=== PATIENT | male | born 1985 | race Caucasian/White ===

== ENCOUNTER 2016-08-27 21:49 | Observation (INO) | payer SELFPAY ==
[~2016-08-27] VITALS: Ht 188 cm; Wt 113.0 kg
[2016-08-27 21:51] VITALS: BP 178/97; PULSE 97; RESP 14; TEMP 97.7; O2SAT 100
[2016-08-27 23:17] LABS: AUTOMATED NEUTROPHIL # 5.7 TH/MM3 (1.8-7.7); BASOPHIL # 0.1 TH/MM3 (0-0.2); BASOPHIL % 0.8 % (0.0-2.0); EOSINOPHIL # 0.1 TH/MM3 (0-0.4); EOSINOPHIL % 1.1 % (0.0-4.0); HEMATOCRIT 43.5 % (39.0-51.0); HEMO FLAGS DIFF FINAL; LYMPHOCYTE # 2.2 TH/MM3 (1.0-4.8); MEAN CELL VOLUME 89.8 FL (80.0-100.0); MEAN CORPUSCULAR HEMOGLOBIN 32.2 PG (27.0-34.0); MEAN CORPUSCULAR HGB CONC 35.8 % (32.0-36.0); MONO % 9.2 % (0.0-8.0); NEUT % 63.9 % (16.0-70.0); PLATELET COUNT 248 TH/MM3 (150-450); RED BLOOD COUNT 4.85 MIL/MM3 (4.50-5.90); RED CELL DISTRIBUTION WIDTH 14.5 % (11.6-17.2); WHITE BLOOD COUNT 8.9 TH/MM3 (4.0-11.0)
[2016-08-27 23:38] LABS: ALT (GPT) 45 U/L (12-78); ANION GAP 9 MEQ/L (5-15); AST (GOT) 26 U/L (15-37); BICARBONATE 26.4 MEQ/L (21.0-32.0); BLOOD UREA NITROGEN 11 MG/DL (7-18); CHLORIDE 104 MEQ/L (98-107); GLOMERULAR FILTRATION RATE 88 ML/MIN (>89); POTASSIUM 3.6 MEQ/L (3.5-5.1); SODIUM (NA) 139 MEQ/L (136-145)
[2016-08-27 23:41] LABS: ALKALINE PHOSPHATASE 100 U/L (45-117); TOTAL BILIRUBIN ADULT 0.4 MG/DL (0.2-1.0)
--- NOTE | 2016-08-27 23:50 | PD ---
HPI Chief Complaint: Psychiatric Symptoms Time Seen by Provider: 23:47 Travel History International Travel<30 days: No Contact w/Intl Traveler<30days: No Traveled to known affect area: No History of Present Illness HPI 31-year-old male with history of schizoaffective disorder, here for evaluation of suicidal ideation, auditory hallucinations, and alcohol withdrawal. The patient is from [place], but recently moved here. He drinks about a half a gallon of alcohol per day. His last drink was yesterday. He states he is trying to get sober. He admits to using a small amount of methamphetamine about a week ago by snorting it. He denies any other illicit drug use. He states that he has been hearing voices and has had suicidal thoughts, but is afraid of hurting himself. He is tremulous. No other physical complaints. [facility] Social History Alcohol Use: Yes Tobacco Use: Yes Substance Use: Yes Allergies-Medications (Allergen,Severity, Reaction): Coded Allergies: Penicillin (Verified Allergy, Mild, RASH, 08/28/16) Reported Meds & Prescriptions Reported Meds & Active Scripts Active Vitamin B-1 (Thiamine HCl) 100 Mg Tab 100 Mg PO DAILY Reported Quetiapine Fumarate ER (Quetiapine Fumarate) 150 Mg Tab 300 Mg PO TID Divalproex ER (Divalproex Sodium) 500 Mg Tab 500 Mg PO BID Omeprazole 20 Mg Tab 20 Mg PO BID Fluoxetine (Fluoxetine HCl) 20 Mg Tab 20 Mg PO DAILY Effexor (Venlafaxine HCl) 75 Mg Tab 75 Mg PO DAILY Haloperidol 5 Mg Tab 5 Mg PO BID Review of Systems Except as stated in HPI: all other systems reviewed are Neg Physical Exam Narrative GENERAL: Well-developed, well-nourished, awake, alert, tremulous, no acute distress. SKIN: Warm and dry. No rash. HEAD: Atraumatic. Normocephalic. EYES: Pupils equal and round. No scleral icterus. No injection or drainage. ENT: No nasal bleeding or discharge. Mucous membranes pink and moist. Tongue fasciculations. NECK: Trachea midline. No JVD. No nuchal rigidity. CARDIOVASCULAR: Regular rate and rhythm. RESPIRATORY: No accessory muscle use. Clear to auscultation. Breath sounds equal bilaterally. GASTROINTESTINAL: Abdomen soft, non-tender, nondistended. MUSCULOSKELETAL: No obvious deformities. No clubbing. No cyanosis. No edema. NEUROLOGICAL: Awake and alert. No obvious cranial nerve deficits. Motor grossly within normal limits. Normal speech. PSYCHIATRIC: Appropriate mood and affect; insight and judgment normal. Data Data Last Documented VS Vital Signs Date Time Temp Pulse Resp B/P Pulse Ox O2 Delivery O2 Flow Rate FiO2 08/27/16 21:51 97.7 97 14 178/97 100 Room Air Orders Complete Blood Count With Diff (08/27/16 22:51) Comprehensive Metabolic Panel (08/27/16 22:51) Psych Screen (08/27/16 22:51) Drug Screen, Random Urine (08/27/16 22:51) Alcohol (Ethanol) (08/27/16 22:51) Lorazepam Inj (Ativan Inj) (08/28/16 00:00) Place In Observation (08/27/16 ) Vital Signs (Adult) Q4H (08/27/16 23:58) Activity Oob With Assistance (08/27/16 23:58) Diet Heart Healthy (08/28/16 Breakfast) Sodium Chlor 0.9% 1000 Ml Inj (Ns 1000 M (08/27/16 23:58) Sodium Chloride 0.9% Flush (Ns Flush) (08/28/16 00:00) Sodium Chloride 0.9% Flush (Ns Flush) (08/28/16 09:00) Basic Metabolic Panel (Bmp) (08/28/16 06:00) Complete Blood Count With Diff (08/28/16 06:00) Case Management Consult (08/27/16 23:58) Naloxone Inj (Narcan Inj) (08/28/16 00:00) Lorazepam Inj (Ativan Inj) (08/28/16 00:00) Chlordiazepoxide (Librium) (08/28/16 09:00) Consult Psych Counselor Etoh (08/27/16 ) ^ Etoh Withdrawal Precautions (08/27/16 23:59) Thiamine (Vit B1) (Vitamin B1) (08/28/16 00:15) Thiamine (Vit B1) (Vitamin B1) (08/28/16 09:00) Ondansetron Inj (Zofran Inj) (08/28/16 00:15) Admit Order (Ed Use Only) (08/28/16 00:04) Consult Psychiatry (08/28/16 ) ^ Sitter (08/28/16 00:04) Chlordiazepoxide (Librium) (08/28/16 00:30) Lipase (08/27/16 23:02) Labs Laboratory Tests Test 08/27/16 23:02 White Blood Count 8.9 TH/MM3 Red Blood Count 4.85 MIL/MM3 Hemoglobin 15.6 GM/DL Hematocrit 43.5 % Mean Corpuscular Volume 89.8 FL Mean Corpuscular Hemoglobin 32.2 PG Mean Corpuscular Hemoglobin 35.8 % Concent Red Cell Distribution Width 14.5 % Platelet Count 248 TH/MM3 Mean Platelet Volume 8.9 FL Neutrophils (%) (Auto) 63.9 % Lymphocytes (%) (Auto) 25.0 % Monocytes (%) (Auto) 9.2 % Eosinophils (%) (Auto) 1.1 % Basophils (%) (Auto) 0.8 % Neutrophils # (Auto) 5.7 TH/MM3 Lymphocytes # (Auto) 2.2 TH/MM3 Monocytes # (Auto) 0.8 TH/MM3 Eosinophils # (Auto) 0.1 TH/MM3 Basophils # (Auto) 0.1 TH/MM3 CBC Comment DIFF FINAL Differential Comment Sodium Level 139 MEQ/L Potassium Level 3.6 MEQ/L Chloride Level 104 MEQ/L Carbon Dioxide Level 26.4 MEQ/L Anion Gap 9 MEQ/L Blood Urea Nitrogen 11 MG/DL Creatinine 0.99 MG/DL Estimat Glomerular Filtration 88 ML/MIN Rate Random Glucose 89 MG/DL Calcium Level 9.4 MG/DL Total Bilirubin 0.4 MG/DL Aspartate Amino Transf 26 U/L (AST/SGOT) Alanine Aminotransferase 45 U/L (ALT/SGPT) Alkaline Phosphatase 100 U/L Total Protein 8.2 GM/DL Albumin 4.1 GM/DL Lipase 274 U/L Ethyl Alcohol Level LESS THAN 3 MG/DL [facility] Medical Decision Making Medical Screen Exam Complete: Yes Emergency Medical Condition: Yes Differential Diagnosis Alcohol withdrawal, acute psychosis, suicidal ideation, paranoid thoughts Narrative Course Vital signs show heart rate 97, blood pressure 178/97, pulse ox 100% on room air , oral temp of 97.7F. CBC is unremarkable. CMP is unremarkable. Alcohol level is negative. The patient is awake and alert. He is tremulous and has tongue fasciculations. He is also tachycardic and hypertensive. His last alcoholic drink was yesterday, and he usually drinks about a half a gallon of alcohol daily. He is displaying signs and symptoms of alcohol withdrawal. He is also having suicidal thoughts and auditory hallucinations. He will be admitted for further treatment and evaluation of alcohol which all, as well as for psychiatric consultation. Case discussed with hospitalist Dr. Juan who will admit the patient to her service. Diagnosis Primary Impression: Alcohol withdrawal Qualified Code: F10.239 - Alcohol withdrawal, with unspecified complication Additional Impressions: Suicidal ideation Auditory hallucinations Admitting Information Admitting Physician Requests: Admit Scripts Thiamine (Vitamin B-1)100 Mg [id number] Mg PO DAILY #30 TAB Prov:Brayan Camargo MD 08/28/16 Fahad Salter MD Aug 27, 2016 23:50
[2016-08-27] MEDS ORDERED: SODIUM CHLOR 0.9% 1000 ML INJ 1,000 ML IV SCH (23:58)
[2016-08-28] MEDS ORDERED: LORazepam 2 MG/ML VIAL IV PUSH ONE
[2016-08-28] MEDS ORDERED: SODIUM CHLORIDE 0.9% FLUSH 5 ML FLUSH FLUSH PRN
[2016-08-28] MEDS ORDERED: NALOXONE HCL 0.4 MG/ML AMP IV PRN
[2016-08-28] MEDS ORDERED: OMEP20TA PO (00:08)
[2016-08-28] MEDS ORDERED: VENL75TA PO (00:08)
[2016-08-28] MEDS ORDERED: HALO5TAB PO (00:08)
[2016-08-28] MEDS ORDERED: QUET-87 PO (00:08)
[2016-08-28] MEDS ORDERED: FLUO1TAB3 PO (00:08)
[2016-08-28] MEDS ORDERED: DIVA500T3 PO (00:08)
[2016-08-28] MEDS ORDERED: ONDANSETRON HCL 4 MG/2 ML VIAL IV PUSH ONE (00:15)
[2016-08-28] MEDS ORDERED: THIAMINE HCL 100 MG TAB PO ONE (00:15)
--- NOTE | 2016-08-28 00:23 | HHI.HP ---
[facility] Service [facility] Primary Care Physician Admission Diagnosis alcohol withdrawal, suicidal ideation, auditory hallucinations Diagnoses: Chief Complaint: Alcohol withdrawal, suicidal thoughts Travel History International Travel<30 Days: No Contact w/Intl Traveler <30 Da: No Traveled to Known Affected Are: No History of Present Illness 31-year-old male with a history of schizoaffective disorder and EtOH abuse presented to the ED with suicidal thoughts, auditory hallucinations, and withdrawal symptoms. Patient states tremors, vomiting, haulcinations no diarrhea, no blood in his stools, abdominal epigastric pain Moved from [place] one month ago voices comes and go, and it has been worse over the last week. He ran out of his med two weeks ago. He has been having suicidal thoughts and his plan was to get hit by a car. Does not see a psychiatrist in this area. Review of Systems Constitutional: DENIES: Fever, Chills Respiratory: DENIES: Cough, Sputum production, Shortness of breath Cardiovascular: DENIES: Chest pain, Palpitations, Lower Extremity Edema Gastrointestinal: COMPLAINS OF: Abdominal pain, Nausea, Vomiting, DENIES: Constipation, Diarrhea Genitourinary: DENIES: Hematuria, Dysuria Musculoskeletal: DENIES: Back pain, Neck pain Integumentary: DENIES: Rash Hematologic/lymphatic: DENIES: Lymphadenopathy Immunologic/allergic: DENIES: Urticaria Neurologic: DENIES: Headache Psychiatric: COMPLAINS OF: Hallucinations, Suicidal Ideation Past Family Social History Past Medical History Schizoaffective disorder EtOH abuse Past Surgical History tib/fib repair Reported Medications Reported Meds & Active Scripts Active Reported Quetiapine Fumarate ER (Quetiapine Fumarate) 150 Mg Tab 300 Mg PO TID Divalproex ER (Divalproex Sodium) 500 Mg Tab 500 Mg PO BID Omeprazole 20 Mg Tab 20 Mg PO BID Fluoxetine (Fluoxetine HCl) 20 Mg Tab 20 Mg PO DAILY Effexor (Venlafaxine HCl) 75 Mg Tab 75 Mg PO DAILY Haloperidol 5 Mg Tab 5 Mg PO BID Allergies: Coded Allergies: Penicillin (Verified Allergy, Mild, RASH, 08/28/16) Active Ordered Medications Current Medications Medications (Trade) Dose Ordered Sig/Marly Route Start Time Stop Time Status Last Admin (NS 1000 ml Inj) 1,000 ml @ 100 mls/hr Q10H IV 08/27/16 23:58 08/28/16 00:16 (NS Flush) 2 ml UNSCH PRN FLUSH 08/28/16 00:00 (NS Flush) 2 ml BID FLUSH 08/28/16 09:00 (Narcan Inj) 0.4 mg UNSCH PRN IV 08/28/16 00:00 (Ativan Inj) 1 mg Q2H PRN IV PUSH 08/28/16 00:00 (Librium) 25 mg TID PO 08/28/16 09:00 (Librium) 25 mg ONCE ONCE PO 08/28/16 00:30 08/28/16 00:31 (Vitamin B1) 100 mg DAILY PO 08/28/16 09:00 Family History Family history significant for heart disease. Aunt has schizoaffective disorder Social History Tobacco use: 1 PPD Alcohol use: Half a gallon a day of whiskey Illicit drug use: snorts methamphetamine, last use was one week ago Physical Exam Vital Signs Vital Signs Date Time Temp Pulse Resp B/P Pulse Ox O2 Delivery O2 Flow Rate FiO2 08/27/16 21:51 97.7 97 14 178/97 100 Room Air Physical Exam GENERAL: This is a well-nourished, well-developed patient, who is having tremors. SKIN: No rashes, ecchymoses or lesions. Cool and dry. HEAD: Atraumatic. Normocephalic. . EYES: Pupils equal round and reactive. Extraocular motions intact. No scleral icterus. No injection or drainage. ENT: Nose without bleeding, purulent drainage or septal hematoma. Airway patent. NECK: Trachea midline. No JVD or lymphadenopathy. Supple, nontender, no meningeal signs. CARDIOVASCULAR: Regular rate and rhythm without murmurs, gallops, or rubs. RESPIRATORY: Clear to auscultation. Breath sounds equal bilaterally. No wheezes , rales, or rhonchi. GASTROINTESTINAL: Abdomen soft, non-tender, nondistended. No hepato-splenomegaly , or palpable masses. No guarding. MUSCULOSKELETAL: Extremities without clubbing, cyanosis, or edema. No joint tenderness, effusion, or edema noted. No calf tenderness. NEUROLOGICAL: Awake and alert. Motor and sensory grossly within normal limits. Normal speech. Laboratory Laboratory Tests Test 08/27/16 23:02 White Blood Count 8.9 Red Blood Count 4.85 Hemoglobin 15.6 Hematocrit 43.5 Mean Corpuscular Volume 89.8 Mean Corpuscular Hemoglobin 32.2 Mean Corpuscular Hemoglobin 35.8 Concent Red Cell Distribution Width 14.5 Platelet Count 248 Mean Platelet Volume 8.9 Neutrophils (%) (Auto) 63.9 Lymphocytes (%) (Auto) 25.0 Monocytes (%) (Auto) 9.2 Eosinophils (%) (Auto) 1.1 Basophils (%) (Auto) 0.8 Neutrophils # (Auto) 5.7 Lymphocytes # (Auto) 2.2 Monocytes # (Auto) 0.8 Eosinophils # (Auto) 0.1 Basophils # (Auto) 0.1 CBC Comment DIFF FINAL Differential Comment Sodium Level 139 Potassium Level 3.6 Chloride Level 104 Carbon Dioxide Level 26.4 Anion Gap 9 Blood Urea Nitrogen 11 Creatinine 0.99 Estimat Glomerular Filtration 88 Rate Random Glucose 89 Calcium Level 9.4 Total Bilirubin 0.4 Aspartate Amino Transf 26 (AST/SGOT) Alanine Aminotransferase 45 (ALT/SGPT) Alkaline Phosphatase 100 Total Protein 8.2 Albumin 4.1 Ethyl Alcohol Level LESS THAN 3 Result Diagram: 08/27/16 2302 08/27/16 230 Assessment and Plan Problem List: (1) Suicidal ideation ICD Code: R45.851 Status: Acute (2) Alcohol withdrawal ICD Code: F10.239 Status: Acute (3) Auditory hallucinations ICD Code: R44.0 Status: Acute Assessment and Plan 31-year-old male with a history of schizoaffective disorder and EtOH abuse presented to the ED with suicidal thoughts, auditory hallucinations, and withdrawal symptoms Alcohol withdrawal -Thiamine and Librium scheduled, Ativan ordered -Withdrawal precautions -IVF hydration - Monitor telemetry Suicidal ideation/auditory hallucinations -Sitter at bedside -Consult psych DVT prophylaxis: SCDs Written by Nicole SLOAN, acting as scribe for Dr. Juan on 08/28/16 at . The documentation accurately reflects the work performed [id number] and decisions made by me and the physician Dr Juan on 08/28/16. Discussed Condition With Patient, ED physician and RN Physician Certification Order for Inpatient Services The services are ordered in accordance with Medicare regulations or non- Medicare payer requirements, as applicable. In the case of services not specified as inpatient-only, they are appropriately provided as inpatient services in accordance with the 2-midnight benchmark. days is the estimated time the patient will need to remain in the hospital, assuming treatment plan goals are met and no additional complications. Problem Qualifiers (1) Alcohol withdrawal: Qualified Code: F10.239 - Alcohol withdrawal, with unspecified complication Nicole Alanis Aug 28, 2016 00:23
[2016-08-28 00:30] VITALS: BP 118/67; PULSE 71; RESP 18; O2SAT 99
[2016-08-28] MEDS ORDERED: chlordiazePOXIDE 25 MG CAP PO ONE (00:30)
[2016-08-28 03:00] VITALS: BP 136/65; PULSE 66; RESP 18; O2SAT 98
[2016-08-28 04:23] VITALS: BP 118/75; PULSE 63; RESP 20; TEMP 98.2; O2SAT 97
--- NOTE | 2016-08-28 04:46 | HHI.HP ---
[facility] Service [facility] Primary Care Physician No Primary Care Physician Admission Diagnosis alcohol withdrawal, suicidal ideation, auditory hallucinations Diagnoses: (1) Suicidal ideation (2) Alcohol withdrawal (3) Auditory hallucinations Chief Complaint: Alcohol withdrawal, suicide thoughts Travel History International Travel<30 Days: No Contact w/Intl Traveler <30 Da: No Traveled to Known Affected Are: No History of Present Illness 31-year-old male with a history of schizoaffective disorder and EtOH abuse presented to the ED with suicidal thoughts, auditory hallucinations, and withdrawal symptoms. Patient states he recently [place] one month ago and yesterday he moved into a sober living house and stopped drinking. He stated today he started having tremors, nausea and vomiting with associated epigastric pain. He states one week ago he started having worsening hallucinations more so than normal, and 2 weeks ago he ran out of all his medications. He has been having suicidal thoughts and his plan was to walk into the street and get hit by a car. He currently does not see a psychiatrist in this area. He denies any chest pain, shortness of breath, diarrhea, fever or chills. Patient does admit to drinking half a gallon of whiskey a day since the age of 14, in one week ago he snorted methamphetamine in order to continue to drink. Upon assessment patient was noticed to have slight tremors but not currently an active withdrawal. Sitter is at the bedside Review of Systems Constitutional: DENIES: Fever, Chills Respiratory: DENIES: Cough, Sputum production, Shortness of breath Cardiovascular: DENIES: Chest pain, Lower Extremity Edema Gastrointestinal: COMPLAINS OF: Abdominal pain, Nausea, Vomiting, DENIES: Constipation, Diarrhea Musculoskeletal: DENIES: Back pain, Neck pain Integumentary: DENIES: Rash Hematologic/lymphatic: DENIES: Lymphadenopathy Immunologic/allergic: DENIES: Urticaria Neurologic: DENIES: Headache Psychiatric: COMPLAINS OF: Hallucinations, Suicidal Ideation Past Family Social History Past Medical History Schizoaffective disorder EtOH abuse Past Surgical History tib/fib repair Reported Medications Reported Meds & Active Scripts Active Reported Quetiapine Fumarate ER (Quetiapine Fumarate) 150 Mg Tab 300 Mg PO TID Divalproex ER (Divalproex Sodium) 500 Mg Tab 500 Mg PO BID Omeprazole 20 Mg Tab 20 Mg PO BID Fluoxetine (Fluoxetine HCl) 20 Mg Tab 20 Mg PO DAILY Effexor (Venlafaxine HCl) 75 Mg Tab 75 Mg PO DAILY Haloperidol 5 Mg Tab 5 Mg PO BID Allergies: Coded Allergies: Penicillin (Verified Allergy, Mild, RASH, 08/28/16) Active Ordered Medications Current Medications Medications (Trade) Dose Ordered Sig/Marly Route Start Time Stop Time Status Last Admin (NS 1000 ml Inj) 1,000 ml @ 100 mls/hr Q10H IV 08/27/16 23:58 08/28/16 00:16 (NS Flush) 2 ml UNSCH PRN FLUSH 08/28/16 00:00 (NS Flush) 2 ml BID FLUSH 08/28/16 09:00 (Narcan Inj) 0.4 mg UNSCH PRN IV 08/28/16 00:00 (Ativan Inj) 1 mg Q2H PRN IV PUSH 08/28/16 00:00 (Librium) 25 mg TID PO 08/28/16 09:00 (Vitamin B1) 100 mg DAILY PO 08/28/16 09:00 Family History Family history significant for heart disease. Aunt has schizoaffective disorder Social History Tobacco use: 1 PPD Alcohol use: Half a gallon a day of whiskey Illicit drug use: snorts methamphetamine, last use was one week ago Physical Exam Vital Signs Vital Signs Date Time Temp Pulse Resp B/P Pulse Ox O2 Delivery O2 Flow Rate FiO2 08/28/16 04:23 98.2 63 20 118/75 97 08/28/16 03:00 66 18 136/65 98 Room Air 08/28/16 00:30 71 18 118/67 99 Room Air 08/27/16 21:51 97.7 97 14 178/97 100 Room Air Physical Exam GENERAL: This is a well-nourished, well-developed patient, who is having slight tremors. SKIN: No rashes, ecchymoses or lesions. Cool and dry. HEAD: Atraumatic. Normocephalic. . EYES: Pupils equal round and reactive. Extraocular motions intact. No scleral icterus. No injection or drainage. ENT: Nose without bleeding, purulent drainage or septal hematoma. Airway patent. NECK: Trachea midline. No JVD or lymphadenopathy. CARDIOVASCULAR: Regular rate and rhythm without murmurs, gallops, or rubs. RESPIRATORY: Clear to auscultation. Breath sounds equal bilaterally. No wheezes , rales, or rhonchi. GASTROINTESTINAL: Abdomen soft, mid epigastric tender, nondistended. No guarding. MUSCULOSKELETAL: Extremities without clubbing, cyanosis, or edema. No joint tenderness, effusion, or edema noted. No calf tenderness. NEUROLOGICAL: Awake and alert. Motor and sensory grossly within normal limits. Normal speech. Laboratory Laboratory Tests Test 08/27/16 23:02 White Blood Count 8.9 Red Blood Count 4.85 Hemoglobin 15.6 Hematocrit 43.5 Mean Corpuscular Volume 89.8 Mean Corpuscular Hemoglobin 32.2 Mean Corpuscular Hemoglobin 35.8 Concent Red Cell Distribution Width 14.5 Platelet Count 248 Mean Platelet Volume 8.9 Neutrophils (%) (Auto) 63.9 Lymphocytes (%) (Auto) 25.0 Monocytes (%) (Auto) 9.2 Eosinophils (%) (Auto) 1.1 Basophils (%) (Auto) 0.8 Neutrophils # (Auto) 5.7 Lymphocytes # (Auto) 2.2 Monocytes # (Auto) 0.8 Eosinophils # (Auto) 0.1 Basophils # (Auto) 0.1 CBC Comment DIFF FINAL Differential Comment Sodium Level 139 Potassium Level 3.6 Chloride Level 104 Carbon Dioxide Level 26.4 Anion Gap 9 Blood Urea Nitrogen 11 Creatinine 0.99 Estimat Glomerular Filtration 88 Rate Random Glucose 89 Calcium Level 9.4 Total Bilirubin 0.4 Aspartate Amino Transf 26 (AST/SGOT) Alanine Aminotransferase 45 (ALT/SGPT) Alkaline Phosphatase 100 Total Protein 8.2 Albumin 4.1 Ethyl Alcohol Level LESS THAN 3 Result Diagram: 08/27/16 2302 08/27/16 230 Assessment and Plan Problem List: (1) Suicidal ideation ICD Code: R45.851 Status: Acute (2) Alcohol withdrawal ICD Code: F10.239 Status: Acute (3) Auditory hallucinations ICD Code: R44.0 Status: Acute Assessment and Plan 31-year-old male with a history of schizoaffective disorder and EtOH abuse presented to the ED with suicidal thoughts, auditory hallucinations, and withdrawal symptoms Alcohol withdrawal, upon admission patient found to be very tremulous, patient drinks half a gallon was whiskey daily -Thiamine and Librium scheduled, Ativan prn ordered -Withdrawal precautions -IVF hydration - Monitor telemetry Suicidal ideation/auditory hallucinations -Sitter at bedside -Consult psych Abdominal pain, likely related to vomiting -Lipase level pending -We'll continue to monitor DVT prophylaxis: SCDs Written by Nicole SLOAN, acting as scribe for Dr. Juan on 08/28/16 at 0336. All or portions of this note were transcribed by scribe [Nicole Alanis]. I, Dr. Elaine Juan personally performed the history, physical exam, and medical decision making; and confirmed the accuracy of the information in the transcribed note. Authenticated by Dr. Elaine Juan on 08/28/16 at 0336. Discussed Condition With Patient, ED physician and RN Problem Qualifiers (1) Alcohol withdrawal: Qualified Code: F10.239 - Alcohol withdrawal, with unspecified complication Nicole Alanis Aug 28, 2016 04:46 Elaine Juan MD Aug 28, 2016 07:05
[2016-08-28 05:15] LABS: AUTOMATED NEUTROPHIL # 4.3 TH/MM3 (1.8-7.7); BASOPHIL % 0.5 % (0.0-2.0); EOSINOPHIL # 0.1 TH/MM3 (0-0.4); EOSINOPHIL % 1.5 % (0.0-4.0); HEMATOCRIT 39.7 % (39.0-51.0); HEMO FLAGS DIFF FINAL; LYMPH % 31.9 % (9.0-44.0); LYMPHOCYTE # 2.5 TH/MM3 (1.0-4.8); MEAN CELL VOLUME 90.2 FL (80.0-100.0); MEAN CORPUSCULAR HEMOGLOBIN 31.4 PG (27.0-34.0); MEAN CORPUSCULAR HGB CONC 34.9 % (32.0-36.0); NEUT % 56.1 % (16.0-70.0); PLATELET COUNT 221 TH/MM3 (150-450); RED CELL DISTRIBUTION WIDTH 14.3 % (11.6-17.2); WHITE BLOOD COUNT 7.7 TH/MM3 (4.0-11.0)
[2016-08-28 05:36] LABS: BICARBONATE 22.7 MEQ/L (21.0-32.0); POTASSIUM 3.3 MEQ/L (3.5-5.1)
[2016-08-28] MEDS ORDERED: LORazepam 2 MG/ML VIAL IV PUSH PRN ×5 (07:45)
[2016-08-28] MEDS ORDERED: LORazepam 2 MG TAB PO PRN (07:45)
[2016-08-28] MEDS ORDERED: MAGNESIUM HYDROXIDE SUSP 30 ML CUP PO PRN (07:45)
[2016-08-28] MEDS ORDERED: FLUMAZENIL 0.5 MG/5 ML VIAL IV PUSH PRN (07:45)
[2016-08-28] MEDS ORDERED: DOCUSATE SODIUM 50 MG/SENNA 8.6 MG TAB PO PRN (07:45)
[2016-08-28] MEDS ORDERED: HALOPERIDOL LACTATE 5 MG/ML AMP IM PRN (07:45)
[2016-08-28] MEDS ORDERED: LORazepam 1 MG TAB PO PRN (07:45)
[2016-08-28] MEDS ORDERED: ONDANSETRON HCL 4 MG/2 ML VIAL IV PRN (07:45)
[2016-08-28] MEDS ORDERED: ACETAMINOPHEN 325 MG TAB PO PRN (07:45)
[2016-08-28] MEDS ORDERED: ALUMINUM/MAGNESIUM/SIMETH 30 ML CUP PO PRN (07:45)
[2016-08-28 07:55] VITALS: BP 105/53; PULSE 56; RESP 17; TEMP 96.4; O2SAT 97
[2016-08-28] MEDS ORDERED: POTASSIUM CHLORIDE 10 MEQ CONTROLLED RELEASE TAB PO ONE (08:30)
--- NOTE | 2016-08-28 08:47 | HHI.PR ---
Subjective Remarks Follow up for hallucinations, suicidal ideations, and alcohol withdrawal. The patient states he feels pretty "crappy" this morning. He feels shaky, nauseated , "bad anxiety". The patient reports he's also ran out of his psychiatric medications 5 days ago. The patient states he joined a sober living home yesterday however they noticed him to be in withdrawal and sent him to the hospital. His last drink was yesterday. He also reports continuing to hear voices, denies auditory hallucinations. Objective Vitals Vital Signs Date Time Temp Pulse Resp B/P Pulse Ox O2 Delivery O2 Flow Rate FiO2 08/28/16 07:55 96.4 56 17 105/53 97 08/28/16 04:23 98.2 63 20 118/75 97 08/28/16 03:00 66 18 136/65 98 Room Air 08/28/16 00:30 71 18 118/67 99 Room Air 08/27/16 21:51 97.7 97 14 178/97 100 Room Air Result Diagram: 08/28/16 0309 08/28/16 0309 Objective Remarks GENERAL: Well-developed, well-nourished middle aged male patient in [facility]. Minimally tremulous. SKIN: Warm and dry. HEENT: Atraumatic. Normocephalic. Pupils equal and round. No scleral icterus. No injection or drainage. Mucous membranes pink and moist. NECK: Trachea midline. CARDIOVASCULAR: Regular rate and rhythm. No murmur. RESPIRATORY: No accessory muscle use. Clear to auscultation. Breath sounds equal bilaterally. GASTROINTESTINAL: Abdomen soft, non-tender, nondistended. Hepatic and splenic margins not palpable. MUSCULOSKELETAL: Extremities without clubbing, cyanosis, or edema. No obvious deformities. NEUROLOGICAL: Awake and alert, oriented x4. No obvious cranial nerve deficits. Motor grossly within normal limits. Moves all extremities spontaneously. Normal speech. PSYCHIATRIC: Depressed mood; insight and judgment normal. +auditory hallucinations. Medications and IVs Current Medications Medications (Trade) Dose Ordered Sig/Marly Route Start Time Stop Time Status Last Admin (NS Flush) 2 ml UNSCH PRN FLUSH 08/28/16 00:00 (NS Flush) 2 ml BID FLUSH 08/28/16 09:00 (Narcan Inj) 0.4 mg UNSCH PRN IV 08/28/16 00:00 Thiamine HCl 100 mg 100 mg DAILY PO 08/28/16 09:00 08/28/16 09:13 (NS + KCl 20 Meq Inj) 1,000 ml @ 100 mls/hr Q10H IV 08/28/16 09:00 08/28/16 09:11 (Folate) 1 mg DAILY PO 08/28/16 09:00 09/02/16 08:59 08/28/16 09:14 (Theragran M Tab) 1 tab DAILY PO 08/28/16 09:00 09/02/16 08:59 08/28/16 09:13 (Romazicon Inj) 0.2 mg Q1M PRN IV PUSH 08/28/16 07:45 (Ativan) 1 mg Q4H PRN PO 08/28/16 07:45 (Ativan Inj) 1 mg Q4H PRN IV PUSH 08/28/16 07:45 (Ativan) 2 mg Q2H PRN PO 08/28/16 07:45 (Ativan Inj) 2 mg Q2H PRN IV PUSH 08/28/16 07:45 08/28/16 09:16 (Ativan Inj) 2 mg Q1H PRN IV PUSH 08/28/16 07:45 (Ativan Inj) 2 mg Q15M PRN IV PUSH 08/28/16 07:45 (Haldol Inj) 2 mg Q15M PRN IM 08/28/16 07:45 (Tylenol) 650 mg Q4H PRN PO 08/28/16 07:45 (Zofran Inj) 4 mg Q6H PRN IV 08/28/16 07:45 (Ada-Colace) 1 tab BID PRN PO 08/28/16 07:45 UNV (Milk Of Magnesia Liq) 30 ml DAILY PRN PO 08/28/16 07:45 UNV (Mag-Al Plus Susp Liq) 30 ml Q6H PRN PO 08/28/16 07:45 (Depakote Er) 500 mg BID PO 08/28/16 09:00 08/28/16 09:14 (PROzac) 20 mg DAILY PO 08/28/16 09:00 UNV (Haldol) 5 mg BID PO 08/28/16 09:00 (Protonix) 20 mg BID PO 08/28/16 09:00 08/28/16 09:14 (SEROquel) 300 mg TID PO 08/28/16 09:00 08/28/16 09:54 Non-Formulary Medication 75 mg DAILY PO 08/28/16 09:00 UNV Urinary Catheter: No Vascular Central Line Catheter: No A/P Problem List: (1) Suicidal ideation ICD Code: R45.851 Status: Acute (2) Alcohol withdrawal ICD Code: F10.239 Status: Acute (3) Auditory hallucinations ICD Code: R44.0 Status: Acute Assessment and Plan 31-year-old male with a history of schizoaffective disorder and EtOH abuse presented to the ED with suicidal thoughts, auditory hallucinations, and withdrawal symptoms Alcohol withdrawal, upon admission patient found to be very tremulous, patient drinks half a gallon was whiskey daily -Thiamine/MV/Folate initiated -CIWA protocol with Ativan ordered. -Withdrawal precautions -IVF hydration -Telemetry unremarkable, will discontinue -does not appear to be in significant withdrawal Suicidal ideation/auditory hallucinations: with hx of Schizoaffective Disorder. Reportedly on multiple medications including Prozac, Effexor, Haldol, Seroquel however ran out 5 days ago -hold Prozac and Effexor for now, multiple psych meds concerning for serotonin syndrome, QT prolongation, etc, however the patient has been on these medications for years -Continue patient's haldol, seroquel -Consulted psychiatry, who recommended to continue medications except Effexor and transfer to med psych when medically clear -Continue Sitter Abdominal pain, likely related to vomiting -Lipase level wnl -N/V improved, patient tolerating oral intake. -Continue to monitor Hypokalemia: K 3.3, suspect secondary to recent vomiting -given po KCl replacement -Monitor BMP DVT prophylaxis: SCDs Written by Mohini Pedersen, acting as scribe for Dr. Camargo on 08/28/16 at 08: 47. All or portions of this note were transcribed by scribe []. I, Dr. Brayan Camargo personally performed the history, physical exam, and medical decision making; and confirmed the accuracy of the information in the transcribed note. Authenticated by Dr. Brayan Camargo on 08/28/16 at 14:01. Discharge Planning Discharge patient to med psych Condition on discharge: Improved Regular Diet as tolerated Ad [place] activity no driving Rx written: Thiamine Follow-up with primary care physician in one week Problem Qualifiers (1) Alcohol withdrawal: Qualified Code: F10.239 - Alcohol withdrawal, with unspecified complication Mohini Pedersen PA-C Aug 28, 2016 08:47 Brayan Camargo MD Aug 28, 2016 14:01
[2016-08-28] MEDS ORDERED: MULTIVITAMINS/MINERALS THERAPEUTIC TAB PO SCH (09:00)
[2016-08-28] MEDS ORDERED: NS + KCL 20 MEQ INJ 1,000 ML IV SCH (09:00)
[2016-08-28] MEDS ORDERED: HALOPERIDOL 5 MG TAB PO SCH (09:00)
[2016-08-28] MEDS ORDERED: PANTOPRAZOLE SOD 20 MG DELAYED RELEASE TAB PO SCH (09:00)
[2016-08-28] MEDS ORDERED: NON-FORMULARY DRUG (Venlafaxine (Effexor) 75 MG) PO SCH (09:00)
[2016-08-28] MEDS ORDERED: chlordiazePOXIDE 25 MG CAP PO SCH (09:00)
[2016-08-28] MEDS ORDERED: THIAMINE HCL 100 MG TAB PO SCH (09:00)
[2016-08-28] MEDS ORDERED: SODIUM CHLORIDE 0.9% FLUSH 5 ML FLUSH FLUSH SCH (09:00)
[2016-08-28] MEDS ORDERED: FOLIC ACID 1 MG TAB PO SCH (09:00)
[2016-08-28] MEDS ORDERED: DIVALPROEX SODIUM E.R. 500 MG TAB PO SCH (09:00)
[2016-08-28 09:20] LABS: MAGNESIUM 2.1 MG/DL (1.5-2.5)
[2016-08-28] MEDS: QUEtiapine FUMARATE 300 MG TAB PO SCH ×2 (09:54→12:10)
--- NOTE | 2016-08-28 13:36 | PD.CONS ---
Provisional Diagnosis Admission Date Aug 28, 2016 at 00:06 [place] I. Schizophrenia, alcohol use disorder [place] II. Deferred [place] III. None [place] IV. Long history of psychiatric illness, alcohol use disorder [place] V. 40 History of Present Illness Service Psychiatry Consult Requested By Primary Care Physician No Primary Care Physician HPI The patient is a 31-year-old man with psychiatric history of schizoaffective disorder, EtOH abuse, numerous psychiatric hospitalizations, 2 of them in [facility] hospitalizations in [place] for over 2 months each one , 3 previous SAs, was stable in the following psychotropic regiment: Haldol 5 mg twice a day, Seroquel 300 mg 3 times a day, Depakote 500 mg BID, Effexor 75 mg Prozac 20 mg, significant medical history, who presented to the ED with suicidal thoughts, auditory hallucinations, and withdrawal symptoms.Patient states he recently [place] one month ago and yesterday he moved into a sober living house and stopped drinking suddenly. He stated today he started having tremors, nausea and vomiting with associated epigastric pain. He states one week ago he started having worsening auditory, commanding type, perseverant hallucinations of multiple voices telling him to kill himself, these voices has increased in severity, intensity and frequency since he stopped taking his medication about a week ago. He he also has been having intrusive suicidal thoughts and his plan was to walk into the street and get hit by a car. At the moment of this evaluation patient is not really very operative due to the level of sedation given by multiple doses of Ativan with the intention of control his withdrawal symptoms. Patient is fully oriented 3, he reports daily use of about half Gallon of whiskey. He also reports recently use of amphetamines, but he stated he was just one time thing. He denies the use of other drugs such as marijuana, heroine, PCP, cocaine. Review of Systems Constitutional: DENIES: Diaphoretic episodes, Fatigue, Fever, Weight gain, Weight loss, Chills, Dizziness, Change in appetite, Night Sweats Endocrine: DENIES: Heat/cold intolerance, Polydipsia, Polyuria, Polyphagia Eyes: DENIES: Blurred vision, Diplopia, Eye inflammation, Eye pain, Vision loss , Photosensitivity, Double Vision Ears, nose, mouth, throat: DENIES: Tinnitus, Hearing loss, Vertigo, Nasal discharge, Oral lesions, Throat pain, Hoarseness, Ear Pain, Running Nose, Epistaxis, Sinus Pain, Toothache, Odynophagia Respiratory: DENIES: Apneas, Cough, Snoring, Wheezing, Hemoptysis, Sputum production, Shortness of breath Gastrointestinal: DENIES: Abdominal pain, Black stools, Bloody stools, Constipation, Diarrhea, Nausea, Vomiting, Difficulty Swallowing, Anorexia Musculoskeletal: DENIES: Joint pain, Muscle aches, Stiffness, Joint Swelling, Back pain, Neck pain Integumentary: DENIES: Abnormal pigmentation, Nail changes, Pruritus, Rash Hematologic/lymphatic: DENIES: Bruising, Lymphadenopathy Immunologic/allergic: DENIES: Eczema, Urticaria Neurologic: DENIES: Abnormal gait, Headache, Localized weakness, Paresthesias, Seizures, Speech Problems, Tremor, Poor Balance Psychiatric: COMPLAINS OF: Hallucinations, Suicidal Ideation, DENIES: Anxiety , Confusion, Mood changes, Depression, Agitation, Homicidal Ideation, Delusions Past Family Social History Coded Allergies: Penicillin (Verified Allergy, Mild, RASH, 08/28/16) Reported Medications Quetiapine Fumarate (Quetiapine Fumarate ER)150 Mg [id number] Mg PO TID 08/28/16 Divalproex ER 500 Mg Clb340 Mg PO BID #30 TAB Ref 0 08/28/16 Omeprazole 20 Mg Tab20 Mg PO BID #30 TAB Ref 0 08/28/16 Fluoxetine 20 Mg Tab20 Mg PO DAILY #30 TAB Ref 0 08/28/16 Venlafaxine (Effexor)75 Mg Tab75 Mg PO DAILY #30 TAB Ref 0 08/28/16 Haloperidol 5 Mg Tab5 Mg PO BID Ref 0 08/28/16 Current Medications Medications (Trade) Dose Ordered Sig/Marly Route Start Time Stop Time Status Last Admin (NS Flush) 2 ml UNSCH PRN FLUSH 08/28/16 00:00 (NS Flush) 2 ml BID FLUSH 08/28/16 09:00 (Narcan Inj) 0.4 mg UNSCH PRN IV 08/28/16 00:00 Thiamine HCl 100 mg 100 mg DAILY PO 08/28/16 09:00 08/28/16 09:13 (NS + KCl 20 Meq Inj) 1,000 ml @ 100 mls/hr Q10H IV 08/28/16 09:00 08/28/16 09:11 (Folate) 1 mg DAILY PO 08/28/16 09:00 09/02/16 08:59 08/28/16 09:14 (Theragran M Tab) 1 tab DAILY PO 08/28/16 09:00 09/02/16 08:59 08/28/16 09:13 (Romazicon Inj) 0.2 mg Q1M PRN IV PUSH 08/28/16 07:45 (Ativan) 1 mg Q4H PRN PO 08/28/16 07:45 (Ativan Inj) 1 mg Q4H PRN IV PUSH 08/28/16 07:45 (Ativan) 2 mg Q2H PRN PO 08/28/16 07:45 (Ativan Inj) 2 mg Q2H PRN IV PUSH 08/28/16 07:45 08/28/16 09:16 (Ativan Inj) 2 mg Q1H PRN IV PUSH 08/28/16 07:45 (Ativan Inj) 2 mg Q15M PRN IV PUSH 08/28/16 07:45 (Haldol Inj) 2 mg Q15M PRN IM 08/28/16 07:45 (Tylenol) 650 mg Q4H PRN PO 08/28/16 07:45 (Zofran Inj) 4 mg Q6H PRN IV 08/28/16 07:45 (Ada-Colace) 1 tab BID PRN PO 08/28/16 07:45 UNV (Milk Of Magnesia Liq) 30 ml DAILY PRN PO 08/28/16 07:45 UNV (Mag-Al Plus Susp Liq) 30 ml Q6H PRN PO 08/28/16 07:45 (Depakote Er) 500 mg BID PO 08/28/16 09:00 08/28/16 09:14 (PROzac) 20 mg DAILY PO 08/28/16 09:00 UNV (Haldol) 5 mg BID PO 08/28/16 09:00 08/28/16 12:09 (Protonix) 20 mg BID PO 08/28/16 09:00 08/28/16 09:14 (SEROquel) 300 mg TID PO 08/28/16 09:00 08/28/16 12:10 Non-Formulary Medication 75 mg DAILY PO 08/28/16 09:00 UNV Family History He denies Social History Patient was born and raised in [place], he moved to [place] about a month ago, he has been living with his brother in the [facility], is unemployed, single, he is in the process to get SSI benefits, his highest level of education is 11th grade. Physical Exam Vital Signs Vital Signs Date Time Temp Pulse Resp B/P Pulse Ox O2 Delivery O2 Flow Rate FiO2 08/28/16 07:55 96.4 56 17 105/53 97 08/28/16 03:00 Room Air Lab Results Labs reviewed, remarkable, except for potassium 3.3 Mental Status Examination Appearance man, age appearing, long hair, good hygiene, [facility], superficially cooperative due to level of sedation. Speech: Hesitant, Slow, Incoherent Orientation: x3 Memory: Unremarkable Thought Process: Logical Thought Content: Unremarkable Hallucination Type: Auditory (voices telling him to kill himself) Suicidal Ideation: Yes Previous Suicide Attempts: Yes Homicidal Ideation: No Affect: Irritable Mood: Irritable Motor Activity: Normal gait Assessment & Plan Problem List: (1) Schizophrenia Assessment & Plan: The patient is a 31-year-old man with psychiatric history of schizoaffective disorder, EtOH abuse, numerous psychiatric hospitalizations, [address] [facility] hospitalizations in [place] for over 2 months each one, 3 previous SAs, was stable in the following psychotropic regiment: Haldol 5 mg twice a day, Seroquel 300 mg 3 times a day, Depakote 500 mg BID, Effexor 75 mg Prozac 20 mg, significant medical history, who presented to the ED with suicidal thoughts, auditory hallucinations, and withdrawal symptoms. On psychiatric evaluation patient presents active suicidal ideation with a plan of jumping in front of traffic or jumping off a bridge, he reports about a week of progressing, increased in intensity and frequency commanding-type auditory hallucinations of voices telling him to kill himself and derogatory comments. The voices started concomitantly patient stopping taking his psychotropics and most probably are exacerbated by daily use of alcohol. Patient is currently a danger to himself at can potentially become a danger to others, he needs psychiatric admission for stabilization and safety. He needs to continue in 1: 1 observation for safety. Continue [facility] protocol. Collateral information is important to complete the psychiatric assessment. We will start Seroquel 300 HS , Haldol 5 bid, Prozac 20, to control psychosis and mood symptoms. She can be transferred to regular psychiatry once medically clear, or Med/Psy if patient continues to need medical care. Extensive psycho education, support and motivation provided. ICD Code: F20.9 (2) Alcohol withdrawal Assessment & Plan: Continue [facility] protocol. ICD Code: F10.239 Assessment & Plan Estimated LOS: days Problem Qualifiers (1) Alcohol withdrawal: Qualified Code: F10.239 - Alcohol withdrawal, with unspecified complication Conrad Gutiérrez MD Aug 28, 2016 13:36
[2016-08-28 13:42] VITALS: BP 120/66; PULSE 97; RESP 17; TEMP 96.2; O2SAT 97
[2016-08-28] MEDS ORDERED: VITA100T2 PO (13:59)
--- NOTE | 2016-08-28 14:00 | HHI.DCPOC ---
Discharge Care Plan Diagnosis: (1) Suicidal ideation (2) Schizophrenia (3) Alcohol withdrawal (4) Auditory hallucinations Your Health Problems Are: Difficulty with ADL Exercise Tolerance Goals to Promote Your Health * To prevent worsening of your condition and complications * To maintain your health at the optimal level Directions to Meet Your Goals Take your medications as prescribed Follow your dietary instruction Follow activity as directed Keep your appointments as scheduled Take your immunizations and boosters as scheduled If your symptoms worsen call your PCP, if no PCP go to Urgent Care Center or Emergency Room Smoking is Dangerous to Your Health. Avoid second hand smoke Call the 24-hour hour crisis hotline for domestic abuse at Brayan Camargo MD Aug 28, 2016 14:00
[2016-08-28] MEDS ORDERED: FLUoxetine HCL 20 MG CAP PO SCH (15:00)
[2016-08-28] MEDS ORDERED: QUEtiapine FUMARATE 300 MG TAB PO SCH (21:00)
== END 2016-08-28 16:26 ==
LOC: NEPA 21:49 → INTOOBSV 08-28 00:06 → NEDA 08-28 00:06 → NEPFCDU 08-28 03:30
PROVIDERS: ADMIT Internal Medicine; ATTEND Internal Medicine
DX: R45.851 Suicidal ideations (principal); R44.0 Auditory hallucinations; F25.9 Schizoaffective disorder, unspecified; F10.239 Alcohol dependence with withdrawal, unspecified; F17.200 Nicotine dependence, unspecified, uncomplicated
CPT/HCPCS: 80048; 80053; 80164; 80307; 83690; 83735; 84100; 85025; 96374; 99285; G0378; J2060; J2405; J3480; J7030

== ENCOUNTER 2016-08-28 16:31 | Inpatient (IN) | payer SELFPAY ==
[~2016-08-28 16:31] MED LIST: DIVA500T3 PO; FLUO1TAB3 PO; HALO5TAB PO; OMEP20TA PO; QUET-87 PO; VENL75TA PO; VITA100T2 PO
[2016-08-28 16:51] VITALS: BP 126/60; PULSE 77; RESP 16; TEMP 98.1
[2016-08-28] MEDS ORDERED: LORazepam 1 MG TAB PO PRN (17:00)
[2016-08-28] MEDS ORDERED: MAGNESIUM HYDROXIDE SUSP 30 ML CUP PO PRN (17:00)
[2016-08-28] MEDS ORDERED: LORazepam 2 MG/ML VIAL IM PRN (17:00)
[2016-08-28] MEDS: NICOTINE 21 MG/24 HR PATCH TD SCH (17:00)
[2016-08-28] MEDS ORDERED: PILL SPLITTER OTHER PRN (17:15)
[2016-08-28] MEDS: QUEtiapine FUMARATE 100 MG TAB PO SCH (18:00)
[2016-08-28] MEDS: REMOVE OLD NICODERM (NICOTINE) PATCH TD SCH (21:00)
[2016-08-28] MEDS: HALOPERIDOL 5 MG TAB PO SCH (21:25)
[2016-08-28] MEDS: DIVALPROEX SODIUM E.R. 500 MG TAB PO SCH (21:25)
[2016-08-29 06:17] VITALS: BP 109/60; PULSE 58; RESP 18; TEMP 97.5; O2SAT 97
[2016-08-29 08:15] LABS: ANION GAP 7 MEQ/L (5-15); BICARBONATE 25.9 MEQ/L (21.0-32.0); BLOOD UREA NITROGEN 8 MG/DL (7-18); CHLORIDE 110 MEQ/L (98-107); GLOMERULAR FILTRATION RATE 84 ML/MIN (>89); HDL CHOLESTEROL 48.3 MG/DL (40.0-60.0); LDL CHOLESTEROL 68 MG/DL (0-99); POTASSIUM 3.7 MEQ/L (3.5-5.1); SODIUM (NA) 143 MEQ/L (136-145)
[2016-08-29] MEDS: QUEtiapine FUMARATE 100 MG TAB PO SCH ×2 (08:23→13:00)
[2016-08-29] MEDS: DIVALPROEX SODIUM E.R. 500 MG TAB PO SCH ×2 (08:23→20:49)
[2016-08-29] MEDS: NICOTINE 21 MG/24 HR PATCH TD SCH (08:23)
[2016-08-29] MEDS: FLUoxetine HCL 20 MG CAP PO SCH (08:23)
[2016-08-29] MEDS: HALOPERIDOL 5 MG TAB PO SCH ×2 (08:23→20:49)
--- NOTE | 2016-08-29 13:34 | HHI.HP ---
Provisional Diagnosis Admission Date Aug 28, 2016 at 16:31 [place] I. 1. Adjustment disorder, unspecified Strongly suspect malingering for halfway and also to bolster a disability application Rule out primary psychotic disorder Rule out substance-induced psychotic disorder 2. Alcohol dependence [place] II. Deferred [place] V. GAF is 45 presently Certification of Person's Competence To Provide Express and Informed Consent I have personally examined Blake Barahona , a person being served at [facility] on, Aug 29, 2016 13:34. Express and informed consent means consent voluntarily given in writing, by a competent person, after sufficient explanation and disclosure of the subject matter involved to enable the person to make a knowing and willful decision without any element of force, fraud, deceit, duress, or other form of constraint or coercion. This person is 18 years of age or older, is not now known to be incompetent to consent to treatment with a guardian advocate, and does not have a health care surrogate or proxy currently making medical treatment decisions. I have found this person to be one of the following: [x] Competent to provide express and informed consent, as defined above, for voluntary admission to this facility and is competent to provide express and informed consent for treatment. He/she has the consistent capacity to make well reasoned, willful, and knowing decisions concerning his or her medical or mental health treatment. The person fully and consistently understands the purpose of the admission for examination/placement and is fully capable of personally exercising all rights assured under [place] Incompetent to provide express and informed consent to voluntary admission, and this is incompetent to provide express and informed consent to treatment. The person must be transferred to involuntary status and a petition for a guardian advocate filed with the Circuit Court. [] Refusing to provide express and informed consent to voluntary admission but is competent to provide express and informed consent for treatment. The person must be discharged or transferred to involuntary status. Form shall be completed within 24 hours of a person's arrival at the receiving facility and filed in the clinical record of each person: 1. Admitted on a voluntary basis 2. Permitted to provide express and informed consent to his/her own treatment 3. Allowed to transfer from involuntary to voluntary status 4. Prior to permitting a person to consent to his or her own treatment after having been previously found incompetent to consent to treatment. History of Present Illness Capacity: Has Capacity HPI Mr. Barahona is a 31-year-old male with a reported history of schizoaffective disorder who presented to the emergency department initially with complaints of suicidal ideation, auditory hallucinations and alcohol related complaints. He was admitted medically for the management of alcohol withdrawal. He was evaluated on the medical floor by Dr. Gutiérrez who recommended inpatient psychiatric admission once medically cleared. The patient has been admitted to the inpatient psychiatric unit under the Mathis act. Electronic medical record reviewed. Patient seen and examined. Chart reviewed. Case discussed with nurse on the inpatient psychiatric unit. Per nursing staff, no behavioral problem, no evidence of any suicidality or homicidality noted on the inpatient unit. Patient presents to me as fairly manipulative. He says that he here moved from [place] within the last few weeks to be with his brothers, but the patient notes that he got kicked out of their home because "we were drinking and arguing and they called the regulatory compliance specialist." He says that he got in to [facility] but only lasted there 1 day before relapsing to alcohol. He says that he has been without his prescribed psychotropic medications for the last 2 weeks. He says that off of the medications he has been experiencing "one commanding voice and 3 chatting voices." He does not appear internally stimulated. He describes these voices as continuous and occurring inside his head when asked. Mood is somewhat dysphoric but there is a dearth of affective symptoms generally. No delusional material. Patient reports ongoing SI without plan or intent. No homicidal ideation. Patient alludes to some sort of history of childhood trauma and says that he is experiencing "flashbacks and depression" as a result of this. The remainder of the psychiatric ROS is negative. Past psychiatric history: Includes history of schizoaffective disorder. Patient cannot recall the name of his most recent outpatient psychiatrist, nor can he recall when he was last seen by that doctor. He says that he was admitted to [facility] 2 weeks ago and was hospitalized for a week there, stabilized on medications and discharged. He says that he became nonadherent with medications more or less immediately. He endorses prior suicide attempts by trying to hang himself and trying to get himself run over. He is pretty vague about the timing of these events saying that they occurred "not too recent but relatively recently." Family history: Patient reports a family history of bipolar disorder in his mother. He says that his aunt had schizophrenia. He says that some other aunts have completed suicide. Chemical dependency history: Patient reports that he has been drinking a half a gallon of liquor daily. He denies any history of DTs or seizures. His longest sober time is 1 year when he was in assisted. He denies any other active substance use but says that he previously used "whatever came my way while I was drunk." Social history: Patient alludes to some sort of history of childhood trauma. He declines to discuss it in any detail. He reports to be college-educated but is not working. He says that he is trying to get on disability. He denies any or legal history (but see above). He denies any access to guns or firearms. He denies any tenriism or spiritual beliefs. Review of Systems Other No reported headache, vision or hearing changes, chest pain, shortness of breath , bowel or bladder issues. No other physical complaints. Past Psych History Psychological trauma history See above Violence risk - others (6 mos) Likely lower imminent risk. No homicidal ideation. No known history of violence. Violence risk - self (6 mos) Indeterminate. My suspicion is that there are components of chronic risk related to substance use and personality issues, and the patient continues to threaten SI now. I will observe the patient briefly on the inpatient psychiatric unit for safety, although I suspect his overall presentation is fairly malingered. Substance Abuse History Drugs/Alcohol past 12 months See above Past Family Social History Coded Allergies: Penicillin (Verified Allergy, Mild, RASH, 08/28/16) Past Medical History Patient denies any medical issues Active Scripts Thiamine (Vitamin B-1)100 Mg [id number] Mg PO DAILY #30 TAB Prov:Brayan Camargo MD 08/28/16 Reported Medications Quetiapine Fumarate (Quetiapine Fumarate ER)150 Mg [id number] Mg PO TID 08/28/16 Divalproex ER 500 Mg Ysp187 Mg PO BID #30 TAB Ref 0 08/28/16 Omeprazole 20 Mg Tab20 Mg PO BID #30 TAB Ref 0 08/28/16 Fluoxetine 20 Mg Tab20 Mg PO DAILY #30 TAB Ref 0 08/28/16 Venlafaxine (Effexor)75 Mg Tab75 Mg PO DAILY #30 TAB Ref 0 08/28/16 Haloperidol 5 Mg Tab5 Mg PO BID Ref 0 08/28/16 Current Medications Medications (Trade) Dose Ordered Sig/Marly Route Start Time Stop Time Status Last Admin (Ativan) 1 mg Q6H PRN PO 08/28/16 17:00 (Ativan Inj) 1 mg Q6H PRN IM 08/28/16 17:00 (Tylenol) 650 mg Q4H PRN PO 08/28/16 17:00 (Milk Of Magnesia Liq) 30 ml DAILY PRN PO 08/28/16 17:00 (Mag-Al Plus Susp Liq) 30 ml Q6H PRN PO 08/28/16 17:00 (Habitrol 21 Mg Patch.24 Hr) 1 patch DAILY TD 08/28/16 17:00 Miscellaneous Information 1 HS TD 08/28/16 21:00 08/28/16 21:00 (SEROquel) 150 mg TID PO 08/28/16 18:00 08/29/16 13:00 (Pill Splitter) 1 ea UNSCH PRN OTHER 08/28/16 17:15 (Depakote Er) 500 mg BID PO 08/28/16 21:00 08/29/16 08:23 (Haldol) 5 mg BID PO 08/28/16 21:00 08/29/16 08:23 (PROzac) 20 mg DAILY PO 08/29/16 09:00 08/29/16 08:23 Family History See above Social History See above Patient's Strengths (min. 2) In a monitored setting. Verbally fluent. Physical Exam Physical examination completed on medical floor. On my examination today, patient appears to be well-nourished and well-developed. He is in no acute physical distress. No hand tremor, no diaphoresis, no mydriasis, no other signs of alcohol withdrawal. Labs and vital signs reviewed: Vital Signs Vital Signs Date Time Temp Pulse Resp B/P Pulse Ox O2 Delivery O2 Flow Rate FiO2 08/29/16 06:17 97.5 58 18 109/60 97 Lab Results Item Value Date Time White Blood Count 7.7 TH/MM3 08/28/16 0309 Hemoglobin 13.8 GM/DL 08/28/16 0309 Platelet Count 221 TH/MM3 08/28/16 0309 Sodium Level 143 MEQ/L 08/29/16 06 Potassium Level 3.7 MEQ/L 08/29/16 06 Chloride Level 110 MEQ/L H 08/29/16 06 Carbon Dioxide Level 25.9 MEQ/L 08/29/16 06 Blood Urea Nitrogen 8 MG/DL 08/29/16 06 Creatinine 1.03 MG/DL 08/29/16 06 Random Glucose 87 MG/DL 08/29/16657 Aspartate Amino Transf (AST/SGOT) 26 U/L 08/27/16 230 Alanine Aminotransferase (ALT/SGPT) 45 U/L 08/27/16 230 Alkaline Phosphatase 100 U/L 08/27/162301 Ethyl Alcohol Level LESS THAN 3 MG/DL 08/27/162301 Mental Status Examination Patient is in hospital gown. He is fairly well groomed. He is awake and alert and oriented to person and hospital at least. No signs of delirium. No abnormal motor movements noted. Speech is within normal limits for rate, tone and volume. Language and fund of knowledge seem average. Mood is reportedly depressed although affect is generally blunted and perhaps only a little bit dysphoric. Thought processes linear. No loosening of associations. No evident delusional material. Patient purports to be experiencing auditory hallucinations, including some command auditory hallucinations as detailed above but does not appear at all internally stimulated. No other hallucinatory material. Continues to claim suicidal ideation without specific plan or intent. No reported urge to hurt himself on the inpatient psychiatric unit. No homicidal ideation. Insight and judgment are fair. Previous Suicide Attempts: Yes Assessment & Plan Problem List: (1) Adjustment disorder ICD Code: F43.20 (2) Alcohol dependence ICD Code: F10.20 Assessment & Plan This is a 31-year-old male with psychiatric history as detailed above who is presently admitted to the inpatient psychiatric unit under a Mathis act. Patient initially presented to the emergency department with complaints of suicidal ideation, auditory hallucinations and alcohol withdrawal. On my examination today, the patient continues to claim auditory hallucinations and suicidal ideation, although his description of his auditory hallucinations has several features suggestive of malingered AVH including the fact that they occur continuously and inside his head. He doesn't appear at all internally stimulated. Patient has at least 3 possible sources of secondary gain: 1) He was at [facility] before relapsing to alcohol. He likely can't go back until he has been abstinent for a period per their requirements. 2) He is otherwise homeless. 3) He is reportedly endeavoring to file for disability. I will observe the patient briefly on the inpatient psychiatric unit for safety and also make some medication adjustments as the patient claims that his current medication regimen as it is dosed makes him too sedated. I have discussed my plan with the patient, and he is in agreement both with the proposed length of stay and also with the medication changes. Admitted inpatient. Voluntary status. Patient has no signs of withdrawal and was detoxified on the medical unit. Observe for signs of withdrawal. I will adjust patient's Seroquel to 150 mg in the morning and 300 mg at bedtime to try to lessen sedation. Continue Haldol as ordered. Continue Depakote as ordered. Plan to check a Depakote level after the weekend. Continue Prozac as ordered. Atarax as needed for anxiety. Vitals every shift. Counselor to see and obtain collateral. Try to obtain records from [facility]. Disposition planning. Estimated length of stay: 2-3 days. Discharge Planning Monitor over the weekend. Anticipate discharge beginning of next week. Request HC Surrog/Guard Advoc?: No Problem Qualifiers (1) Adjustment disorder: Qualified Code: F43.20 - Adjustment disorder, unspecified type (2) Alcohol dependence: Qualified Code: F10.20 - Uncomplicated alcohol dependence Anthony Pena MD Aug 29, 2016 13:34
[2016-08-29 14:01] LABS: HEMOGLOBIN A1a 0.9 %; HEMOGLOBIN A1b 1.5 %; HEMOGLOBIN Ao 85.9 %; HEMOGLOBIN LA1C 1.8 %; HEMOGLOBIN P3 3.5 %
[2016-08-29] MEDS ORDERED: hydrOXYzine HCL 50 MG TAB PO PRN (14:30)
[2016-08-29 19:05] VITALS: BP 116/66; PULSE 66; RESP 18; TEMP 98.3; O2SAT 98
[2016-08-29] MEDS: QUEtiapine FUMARATE 300 MG TAB PO SCH (20:49)
[2016-08-29] MEDS: REMOVE OLD NICODERM (NICOTINE) PATCH TD SCH (20:51)
[2016-08-30 06:06] VITALS: BP 116/58; PULSE 61; RESP 18; TEMP 97.3; O2SAT 98
[2016-08-30] MEDS: QUEtiapine FUMARATE 100 MG TAB PO SCH (09:00)
[2016-08-30] MEDS: NICOTINE 21 MG/24 HR PATCH TD SCH (09:00)
[2016-08-30] MEDS: FLUoxetine HCL 20 MG CAP PO SCH (09:00)
[2016-08-30] MEDS: DIVALPROEX SODIUM E.R. 500 MG TAB PO SCH ×2 (09:00→20:38)
[2016-08-30] MEDS: HALOPERIDOL 5 MG TAB PO SCH ×2 (09:00→20:38)
[2016-08-30 18:13] VITALS: BP 124/59; PULSE 62; RESP 18; TEMP 98.2; O2SAT 98
--- NOTE | 2016-08-30 19:27 | HHI.PYPN ---
Subjective Remarks Pt seen and discussed with staff. Pt has been isolative to his room only coming out for meals. He reports that he remains depressed with AH telling him to harm himself, but he denies intent to act on these thoughts. "Im not going to actually do it." He states he has been staying in room sleeping because it is easier to cope with AH. He denies medication side effects. Objective Alert: Yes [place]: Person, Place, Date, Situation Mood: Depressed Affect: Restricted Memory Intact: Immediate, Recent, Remote Hallucinations: Auditory Delusions: No Delusion Type: Other (none) Suicidal: Intent (denies), Plan (hang or shoot self), Ideation (denies intent "I'm not going to do it.") Homicidal: Ideation (denies) Insight/Judgement poor Vitals/IOs Vital Signs Date Time Temp Pulse Resp B/P Pulse Ox O2 Delivery O2 Flow Rate FiO2 08/30/16 18:13 98.2 62 18 124/59 98 Assessment & Plan Problem List: (1) Adjustment disorder ICD Code: F43.20 (2) Alcohol dependence ICD Code: F10.20 Assessment & Plan Continue current tx plan. Continue hospitalization for safety. Justification for Cont. Inpt. impairments in safety Request HC Surrog/Guard Advoc?: No Problem Qualifiers (1) Adjustment disorder: Qualified Code: F43.20 - Adjustment disorder, unspecified type (2) Alcohol dependence: Qualified Code: F10.20 - Uncomplicated alcohol dependence Farrah Morin MD Aug 30, 2016 19:26
[2016-08-30] MEDS: QUEtiapine FUMARATE 300 MG TAB PO SCH (20:38)
[2016-08-30] MEDS: REMOVE OLD NICODERM (NICOTINE) PATCH TD SCH (20:40)
[2016-08-31 04:51] VITALS: BP 91/55; PULSE 53; RESP 18; TEMP 98.7; O2SAT 98
[2016-08-31] MEDS: NICOTINE 21 MG/24 HR PATCH TD SCH (09:00)
[2016-08-31] MEDS: DIVALPROEX SODIUM E.R. 500 MG TAB PO SCH ×2 (09:23→20:43)
[2016-08-31] MEDS: FLUoxetine HCL 20 MG CAP PO SCH (09:23)
[2016-08-31] MEDS: HALOPERIDOL 5 MG TAB PO SCH ×2 (09:23→20:43)
[2016-08-31] MEDS: QUEtiapine FUMARATE 100 MG TAB PO SCH (09:23)
--- NOTE | 2016-08-31 17:44 | HHI.PYPN ---
Subjective Remarks Pt seen and discussed with staff. He has been isolative and spent all day in bed. He remains depressed and endorse SI but states that he feels safe in the hospital and denies intent. He is tolerating medications without side effects. Objective Alert: Yes [place]: Person, Place, Date, Situation Mood: Depressed Affect: Restricted Memory Intact: Immediate, Recent, Remote Hallucinations: Other (none) Delusions: No Delusion Type: Other (none) Suicidal: Intent (denies), Plan (hang or shoot self), Ideation (denies intent "I'm not going to do it.") Homicidal: Ideation (denies) Insight/Judgement poor Vitals/IOs Vital Signs Date Time Temp Pulse Resp B/P Pulse Ox O2 Delivery O2 Flow Rate FiO2 08/31/16 04:51 98.7 53 18 91/55 98 Assessment & Plan Problem List: (1) Adjustment disorder ICD Code: F43.20 (2) Alcohol dependence ICD Code: F10.20 Assessment & Plan Continue current tx plan. Estimated LOS: days Justification for Cont. Inpt. impairments in safety Request HC Surrog/Guard Advoc?: No Problem Qualifiers (1) Adjustment disorder: Qualified Code: F43.20 - Adjustment disorder, unspecified type (2) Alcohol dependence: Qualified Code: F10.20 - Uncomplicated alcohol dependence Farrah Morin MD Aug 31, 2016 17:44
[2016-08-31 17:55] VITALS: BP 121/57; PULSE 63; RESP 18; TEMP 98; O2SAT 97
[2016-08-31] MEDS: REMOVE OLD NICODERM (NICOTINE) PATCH TD SCH (20:43)
[2016-08-31] MEDS: QUEtiapine FUMARATE 300 MG TAB PO SCH (20:43)
[2016-08-31] MEDS: ALUMINUM/MAGNESIUM/SIMETH 30 ML CUP PO PRN (21:24)
[2016-09-01 04:58] VITALS: BP 102/56; PULSE 55; RESP 18; TEMP 98; O2SAT 97
[2016-09-01] MEDS: NICOTINE 21 MG/24 HR PATCH TD SCH (09:00)
[2016-09-01] MEDS: QUEtiapine FUMARATE 100 MG TAB PO SCH (09:08)
[2016-09-01] MEDS: FLUoxetine HCL 20 MG CAP PO SCH (09:08)
[2016-09-01] MEDS: HALOPERIDOL 5 MG TAB PO SCH ×2 (09:08→20:14)
[2016-09-01] MEDS: DIVALPROEX SODIUM E.R. 500 MG TAB PO SCH ×2 (09:09→20:14)
--- NOTE | 2016-09-01 16:23 | HHI.PYPN ---
Subjective Remarks Patient seen and examined. Chart reviewed. Case discussed with nurse, counselor and occupational therapist in treatment team. Per nursing staff, patient presents as somewhat downcast. On my examination today, I find the patient's including in his room. He complains of feeling depressed with associated poor energy, lack of motivation and worthless feelings. He denies any urge to hurt himself on the inpatient psychiatric unit but continues to verbalize some conditional suicidal ideation if discharged. He is fairly hypoverbal and flat overall. He complains of "derogatory" voices but does not describe any command auditory hallucinations. Denies side effects from medications. Agreeable to titration of his Seroquel as detailed below. Review of Systems ROS Limitations: Poor Historian Other No physical complaints today Objective Alert: Yes [place]: Person, Place, Date, Situation Mood: Depressed Affect: Flat Memory Intact: Comment (seems intact on clinical exam) Hallucinations: Auditory (deprecatory, noncommand auditory hallucinations) Delusions: No Delusion Type: Other (no delusional material) Suicidal: Ideation (verbalizes conditional suicidal ideation as detailed above. No reported urge to hurt himself on the inpatient psychiatric unit.) Homicidal: Ideation (no HI) Insight/Judgement Fair Remarks Thought process somewhat slow. Paucity of speech. No motoric abnormalities noted. Grooming and hygiene are fair. No signs of withdrawal noted. Labs Test 09/01/16 07:22 Ammonia 44 MCMOL/L Valproic Acid (Depakene) Level 65 MCG/ML Labs reviewed. Patient has mild hyperammonemia without any signs or symptoms of hyperammonemic encephalopathy. I will plan to recheck an ammonia level later this week. Depakote level is within the therapeutic range. Vitals/IOs Vital Signs Date Time Temp Pulse Resp B/P Pulse Ox O2 Delivery O2 Flow Rate FiO2 09/01/16 04:58 98.0 55 18 102/56 97 Assessment & Plan Problem List: (1) Schizoaffective disorder ICD Code: F25.9 (2) Alcohol dependence ICD Code: F10.20 Assessment & Plan It seems more likely that the patient has a primary psychotic disorder at this point, possibly a schizoaffective disorder. Titrate Seroquel to 150 mg daily and 400 mg at bedtime for psychosis. Continue Depakote and Haldol as ordered. Continue Prozac as ordered with plans to titrate for mood. Continue to monitor on the inpatient unit. Continue other medications and care as ordered. Justification for Cont. Inpt. Monitoring for impairments in safety. Impairments in reality construction. Medication changes in process. High risk for decompensation in a less restrictive environment. Discharge Planning Pending psychiatric stabilization. Request HC Surrog/Guard Advoc?: No Problem Qualifiers (1) Schizoaffective disorder: Qualified Code: F25.1 - Schizoaffective disorder, depressive type (2) Alcohol dependence: Qualified Code: F10.20 - Uncomplicated alcohol dependence Anthony Pena MD Sep 01, 2016 16:23
[2016-09-01 19:40] VITALS: BP 110/56; PULSE 60; RESP 18; TEMP 98.4; O2SAT 98
[2016-09-01] MEDS: REMOVE OLD NICODERM (NICOTINE) PATCH TD SCH (20:14)
[2016-09-01] MEDS: ALUMINUM/MAGNESIUM/SIMETH 30 ML CUP PO PRN (20:35)
[2016-09-01] MEDS ORDERED: QUEtiapine FUMARATE 200 MG TAB PO SCH (21:00)
[2016-09-02 05:51] VITALS: BP 104/60; PULSE 61; RESP 16; TEMP 97.4; O2SAT 98
[2016-09-02] MEDS: NICOTINE 21 MG/24 HR PATCH TD SCH (09:00)
[2016-09-02] MEDS: QUEtiapine FUMARATE 100 MG TAB PO SCH (09:00)
[2016-09-02] MEDS: DIVALPROEX SODIUM E.R. 500 MG TAB PO SCH ×2 (09:00→21:26)
[2016-09-02] MEDS: FLUoxetine HCL 20 MG CAP PO SCH (09:01)
[2016-09-02] MEDS: HALOPERIDOL 5 MG TAB PO SCH (09:01)
--- NOTE | 2016-09-02 14:13 | HHI.PYPN ---
Subjective Remarks Patient seen and examined. Chart reviewed. Case discussed with nursing staff or reports patient remains somewhat depressed and has been seclusive in his room but denying suicidal ideation. On my examination today, the patient reports he continues to struggle with mood. Deprecatory auditory hallucinations continue despite titration of Seroquel. No delusional material. Denies suicidal or homicidal ideation. Denies side effects from medications. Reports he has been able to stabilize in the past on antipsychotic monotherapy , namely Seroquel. Review of Systems Other No physical complaints today. Objective Alert: Yes [place]: Person, Place, Date, Situation Mood: Depressed Affect: Blunted Memory Intact: Comment (remains intact) Hallucinations: Auditory (deprecatory) Delusions: No Delusion Type: Other (no delusions) Suicidal: Ideation (denies suicidal ideation) Homicidal: Ideation (denies homicidal ideation) Insight/Judgement Fair Remarks Thought process linear. No abnormal motor movements noted. No signs of withdrawal noted. Speech a little bit slow but otherwise within normal limits. Labs Labs reviewed. No new labs. Vitals/IOs Vital Signs Date Time Temp Pulse Resp B/P Pulse Ox O2 Delivery O2 Flow Rate FiO2 09/02/16 05:51 97.4 61 16 104/60 98 Assessment & Plan Problem List: (1) Schizoaffective disorder ICD Code: F25.9 (2) Alcohol dependence ICD Code: F10.20 Assessment & Plan Titrate Seroquel to 150/450 mg for psychosis. Titrate Prozac to 30 mg daily. Discontinue Haldol and monitor. Continue to observe on the inpatient unit. Continue other medications and care as ordered. Justification for Cont. Inpt. Impairment in reality construction. Medication changes in process. High risk for decompensation pending psychiatric stabilization. Discharge Planning Pending psychiatric stabilization. Request HC Surrog/Guard Advoc?: No Problem Qualifiers (1) Schizoaffective disorder: Qualified Code: F25.1 - Schizoaffective disorder, depressive type (2) Alcohol dependence: Qualified Code: F10.20 - Uncomplicated alcohol dependence Anthony Pena MD Sep 02, 2016 14:13
[2016-09-02 17:16] VITALS: BP 107/53; PULSE 61; RESP 16; TEMP 97.3; O2SAT 95
[2016-09-02] MEDS: REMOVE OLD NICODERM (NICOTINE) PATCH TD SCH (21:00)
[2016-09-02] MEDS: QUEtiapine FUMARATE 200 MG TAB PO SCH (21:28)
[2016-09-02] MEDS: ALUMINUM/MAGNESIUM/SIMETH 30 ML CUP PO PRN (23:44)
[2016-09-03 06:09] VITALS: BP 108/58; PULSE 62; RESP 18; TEMP 98.2; O2SAT 96
[2016-09-03] MEDS: DIVALPROEX SODIUM E.R. 500 MG TAB PO SCH ×2 (09:00→20:19)
[2016-09-03] MEDS: NICOTINE 21 MG/24 HR PATCH TD SCH (09:00)
[2016-09-03] MEDS: FLUoxetine HCL 10 MG CAP PO SCH (09:03)
[2016-09-03] MEDS: QUEtiapine FUMARATE 100 MG TAB PO SCH (09:03)
--- NOTE | 2016-09-03 11:05 | HHI.PYPN ---
Subjective Remarks Patient seen and examined. Chart reviewed. Case discussed with nursing staff. On my examination today, the patient's affect seems brighter. He reports that he feels improved and says that his auditory hallucinations are beginning to decrease. He was able to tolerate being out in the milieu for a few hours yesterday he says. Mood is improving. Denies side effects from medications. Requests PPI for GERD. Review of Systems Other Except for GERD, no physical complaints. Objective Alert: Yes [place]: Person (O x 3) Mood: Depressed (improving) Affect: Blunted (more reactive) Memory Intact: Comment (Intact on clinical exam) Hallucinations: Auditory (lessening) Delusions: No Delusion Type: Other (none elicited) Suicidal: Ideation (denies suicidal ideation) Homicidal: Ideation (No HI) Insight/Judgement Poor Remarks No abnormal motor movements noted. TP linear. Speech wnl for rate, tone, volume. Labs Labs reviewed. No new labs. Vitals/IOs Vital Signs Date Time Temp Pulse Resp B/P Pulse Ox O2 Delivery O2 Flow Rate FiO2 09/03/16 06:09 98.2 62 18 108/58 96 Assessment & Plan Problem List: (1) Schizoaffective disorder ICD Code: F25.9 (2) Alcohol dependence ICD Code: F10.20 Assessment & Plan Continue Prozac, Seroquel and Depakote as ordered. Plan to check repeat ammonia level tomorrow. No signs of encephalopathy at any rate. Add Protonix. Continue to monitor on the inpatient unit. Continue other medications and care as ordered. Justification for Cont. Inpt. Impairment in reality construction, resolving. Risk for decompensation pending psychiatric stabilization. Discharge Planning Pending psychiatric stabilization. I anticipate discharge in the next 1-2 days barring some clinical worsening. Request HC Surrog/Guard Advoc?: No Problem Qualifiers (1) Schizoaffective disorder: Qualified Code: F25.1 - Schizoaffective disorder, depressive type (2) Alcohol dependence: Qualified Code: F10.20 - Uncomplicated alcohol dependence Anthony Pena MD Sep 03, 2016 11:05
[2016-09-03] MEDS: PANTOPRAZOLE SOD 40 MG DELAYED RELEASE TAB PO SCH (12:09)
[2016-09-03 19:25] VITALS: BP 124/74; PULSE 83; RESP 18; TEMP 98.5; O2SAT 98
[2016-09-03] MEDS: QUEtiapine FUMARATE 200 MG TAB PO SCH (20:20)
[2016-09-03] MEDS: REMOVE OLD NICODERM (NICOTINE) PATCH TD SCH (21:00)
[2016-09-04 06:05] VITALS: BP 108/61; PULSE 64; RESP 16; TEMP 97.6; O2SAT 95
[2016-09-04] MEDS: NICOTINE 21 MG/24 HR PATCH TD SCH (09:00)
[2016-09-04] MEDS: PANTOPRAZOLE SOD 40 MG DELAYED RELEASE TAB PO SCH (09:18)
[2016-09-04] MEDS: DIVALPROEX SODIUM E.R. 500 MG TAB PO SCH (09:18)
[2016-09-04] MEDS: FLUoxetine HCL 10 MG CAP PO SCH (09:21)
[2016-09-04] MEDS: QUEtiapine FUMARATE 100 MG TAB PO SCH (09:23)
[2016-09-04] MEDS: ACETAMINOPHEN 325 MG TAB PO PRN ×2 (09:27→13:06)
[2016-09-04] MEDS ORDERED: QUET1TAB9 PO (12:26)
[2016-09-04] MEDS ORDERED: FLUO-1 PO (12:26)
[2016-09-04] MEDS ORDERED: QUET1TAB8 PO (12:26)
[2016-09-04] MEDS ORDERED: OMEP20TA PO (12:26)
[2016-09-04] MEDS ORDERED: DIVA500T3 PO (12:26)
--- NOTE | 2016-09-04 12:27 | HHI.DS ---
Psychiatry Discharge Summary Inpatient Psychiatric care?: Yes Advance Directive: No Reason Not Provided: did not have Mental Health AdvanceDirective: No Health Care Proxy: No Admission Admission Date Aug 28, 2016 at 16:31 Admission Diagnosis: (1) Adjustment disorder ICD Code: F43.20 (2) Alcohol dependence ICD Code: F10.20 Brief History Mr. Barahona is a 31-year-old male with a reported history of schizoaffective disorder who presented to the emergency department initially with complaints of suicidal ideation, auditory hallucinations and alcohol related complaints. He was admitted medically for the management of alcohol withdrawal. He was evaluated on the medical floor by Dr. Gutiérrez who recommended inpatient psychiatric admission once medically cleared. The patient has been admitted to the inpatient psychiatric unit under the Mathis act. Electronic medical record reviewed. Patient seen and examined. Chart reviewed. Case discussed with nurse on the inpatient psychiatric unit. Per nursing staff, no behavioral problem, no evidence of any suicidality or homicidality noted on the inpatient unit. Patient presents to me as fairly manipulative. He says that he here moved from [place] within the last few weeks to be with his brothers, but the patient notes that he got kicked out of their home because "we were drinking and arguing and they called the hand glass cutter." He says that he got in to [facility] but only lasted there 1 day before relapsing to alcohol. He says that he has been without his prescribed psychotropic medications for the last 2 weeks. He says that off of the medications he has been experiencing "one commanding voice and 3 chatting voices." He does not appear internally stimulated. He describes these voices as continuous and occurring inside his head when asked. Mood is somewhat dysphoric but there is a dearth of affective symptoms generally. No delusional material. Patient reports ongoing SI without plan or intent. No homicidal ideation. Patient alludes to some sort of history of childhood trauma and says that he is experiencing "flashbacks and depression" as a result of this. The remainder of the psychiatric ROS is negative. Past psychiatric history: Includes history of schizoaffective disorder. Patient cannot recall the name of his most recent outpatient psychiatrist, nor can he recall when he was last seen by that doctor. He says that he was admitted to [facility] 2 weeks ago and was hospitalized for a week there, stabilized on medications and discharged. He says that he became nonadherent with medications more or less immediately. He endorses prior suicide attempts by trying to hang himself and trying to get himself run over. He is pretty vague about the timing of these events saying that they occurred "not too recent but relatively recently." Family history: Patient reports a family history of bipolar disorder in his mother. He says that his aunt had schizophrenia. He says that some other aunts have completed suicide. Chemical dependency history: Patient reports that he has been drinking a half a gallon of liquor daily. He denies any history of DTs or seizures. His longest sober time is 1 year when he was in [facility]. He denies any other active substance use but says that he previously used "whatever came my way while I was drunk." Social history: Patient alludes to some sort of history of childhood trauma. He declines to discuss it in any detail. He reports to be college-educated but is not working. He says that he is trying to get on disability. He denies any or legal history (but see above). He denies any access to guns or firearms. He denies any yarsanism or spiritual beliefs. Tobacco Use In Past 30 Days: 5 or More Cigarettes/Day Alcohol Use: 4 or More Times Per Week Hospital Course Patient was admitted to a locked, inpatient psychiatric unit. Appropriate precautions were in place throughout patient's hospital stay. Patient was seen and examined daily on the unit by psychiatry and also visited by counselor. Medications were adjusted. Patient tolerated medications well without side effects. Patient had improvement in his presenting psychiatric symptomatology during the course of his hospital stay. There was no evidence of any suicidality or homicidality on the inpatient unit. Patient remained in good behavioral control and was compliant with medications. As he improved, patient became more visible on the unit and more sociable with peers. On the day of discharge: Patient seen and examined. Chart reviewed. Case discussed with nursing staff. No reported behavioral issues. On my examination today, the patient is requesting discharge from the inpatient psychiatric unit. He denies any suicidal or homicidal ideation. He says that his mood is lifting, and the patient does indeed appear to be in good spirits. He denies any audiovisual hallucinations and I can elicit no delusional beliefs. He is future oriented and plans to get back into his sober living. He says that he has gotten a new sponsor for his 12 step program. He also hopes to gain employment. He denies side effects from medications. He has no physical complaints. Weighing the acute, chronic, and protective factors and based on the available evidence, I clerk rating to a reasonable degree of medical certainty that the patient is at low imminent risk of harm to self or others from a mental illness as defined under the Mathis act and his level of function is adequate for outpatient care. Consequently, the patient does not meet criteria for involuntary psychiatric hospitalization at this time. Given that the patient does not meet criteria for involuntary hospitalization and is requesting discharge from the inpatient psychiatric unit today, I will arrange for his discharge with psychiatric follow -up as arranged by counselor. Patient is also to follow-up with primary care. I supported the patient and his desire to maintain his sobriety. I counseled the patient regarding warning signs for need to return to the psychiatric emergency room as part of the general safety plan. Results Blood Pressure 108 / 61 Vital Signs Date Time Temp Pulse Resp B/P Pulse Ox O2 Delivery O2 Flow Rate FiO2 09/04/16 06:05 97.6 64 16 108/61 95 Laboratory Tests Test 09/04/16 07:20 Ammonia 43 MCMOL/L (11-32) Laboratory Results Test 09/01/16 07:22 Valproic Acid (Depakene) Level 65 MCG/ML (50-100) Summary of Major Lab Results Ammonia level stable. No evidence of hyperammonemic encephalopathy. I have instructed the patient to follow-up with his primary care doctor. Summary of Procedures None done Imaging None done Pending results at discharge: No Medications # of Antipsychotic meds at D/C: 1 Approp Antipsych med options 1 - Minimum of three failed multiple trials of monotherapy. 2 - Documented plan to taper to monotherapy due to previous use of multiple meds OR cross-taper in progress at D/C. 3 - Documentation of augmentation of Clozapine. 4 - Justification other than those listed in allowable values 1-3, document here : Discharge Discharge Date: Sep 04, 2016 Discharge Diagnosis: (1) Schizoaffective disorder Diagnosis: Principal (stable) ICD Code: F25.9 (2) Alcohol dependence Diagnosis: Secondary (counseled to quit) ICD Code: F10.20 GAF on discharge is 60 Mental Status Exam at Disch Patient is casually dressed. He is well groomed. He is awake and alert and oriented 3. No evidence of delirium or encephalopathy. No abnormal motor movements noted. No signs of withdrawal noted. Steady gait and station. Speech is within normal limits for rate, tone and volume. Language and fund of knowledge seemed average. Mood is good and affect is full and reactive. Thought process linear. No loosening of associations. No evident delusions. Denies audiovisual hallucinations. Denies suicidal or homicidal ideation. Insight and judgment are fair. Pt Condition on Discharge: Stable Discharge Disposition: Discharge Home Discharge Instructions Diet Instructions: As Tolerated, No Restrictions Activities you can perform: Weight Bearing as Laura Scheduled Appointment: as per counselor's notes New Medications: Fluoxetine (Prozac) 10 Mg Cap 30 MG PO DAILY Mental Health Days 15 Ref 1 CAP Quetiapine (Quetiapine) 100 Mg Tab 150 MG PO DAILY Mental Health Days 15 Ref 1 TAB Quetiapine (Quetiapine) 200 Mg Tab 450 MG PO HS Mental Health Days 15 Ref 1 TAB Continued Medications: Divalproex ER (Divalproex ER) 500 Mg Tab 500 MG PO BID Mental Health Days 15 Ref 1 TAB (This prescription has been renewed) Omeprazole (Omeprazole) 20 Mg Tab 20 MG PO BID Reflux Days 15 Ref 1 TAB (This prescription has been renewed) Thiamine (Vitamin B-1) 100 Mg Tab 100 MG PO DAILY Alcohol Detox #30 TAB Discontinued Medications: Fluoxetine (Fluoxetine) 20 Mg Tab 20 MG PO DAILY #30 Ref 0 TAB Haloperidol (Haloperidol) 5 Mg Tab 5 MG PO BID Ref 0 TAB Quetiapine Fumarate (Quetiapine Fumarate ER) 150 Mg Tab 300 MG PO TID Venlafaxine (Effexor) 75 Mg Tab 75 MG PO DAILY #30 Ref 0 TAB Discharge Time <= 30 minutes Discharge/Advance Care Plan Health Problems: (1) Schizoaffective disorder (2) Alcohol dependence Goals to promote your health * To prevent worsening of your condition and complications * To maintain your health at the optimal level Directions to meet your goals Take your medications as prescribed Follow your dietary instruction Follow activity as directed Keep your appointments as scheduled Take your immunizations and boosters as scheduled If your symptoms worsen call your PCP, if no PCP go to Urgent Care Center or Emergency Room For 24 questions related to your inpatient stay or results of tests pending at discharge, please contact Dr. Anthony Pena at Smoking is Dangerous to Your Health. Avoid second hand smoking Problem Qualifiers (1) Adjustment disorder: Qualified Code: F43.20 - Adjustment disorder, unspecified type (2) Alcohol dependence: Qualified Code: F10.20 - Uncomplicated alcohol dependence (3) Schizoaffective disorder: Qualified Code: F25.1 - Schizoaffective disorder, depressive type Anthony Pena MD Sep 04, 2016 12:27
== END 2016-09-04 14:15 | disposition home or self-care (01) | DRG 885 ==
LOC: H260 16:31
PROVIDERS: ADMIT Psychiatry & Neurology Psychiatry; ATTEND Psychiatry & Neurology Psychiatry
DX: F25.9 Schizoaffective disorder, unspecified (principal); Z59.0 Homelessness; F10.20 Alcohol dependence, uncomplicated; Z72.0 Tobacco use; Z81.8 Family history of other mental and behavioral disorders; K21.9 Gastro-esophageal reflux disease without esophagitis
CPT/HCPCS: 80048; 80061; 80164; 82140; 83036